=== PATIENT | female | born 1945 | race Asian ===

== ENCOUNTER 2019-07-18 20:41 | Emergency (ER) | payer MEDICARE, OTHER ==
[~2019-07-18] VITALS: Ht 157.5 cm; Wt 63.6 kg
[2019-07-18 21:10] LABS: GLUCOSE,POINT OF CARE 492 MG/DL (70-110)
[2019-07-18] MEDS ORDERED: INSLAN SQ (21:21)
[2019-07-18] MEDS ORDERED: LISI20TA PO (21:21)
[2019-07-18] MEDS ORDERED: [UNRECOGNIZED DRUG - CODE] PO (21:21)
[2019-07-18] MEDS ORDERED: FURO20 PO (21:21)
[2019-07-18] MEDS ORDERED: ASPI-556 PO (21:21)
[2019-07-18] MEDS ORDERED: CETI10TA59 PO (21:21)
[2019-07-18] MEDS ORDERED: AMLO10TA55 PO (21:21)
[2019-07-18] MEDS ORDERED: INSU100I3 SQ (21:21)
[2019-07-18 23:44] LABS: BASOPHILS % (AUTO) 0.7 % (0.0-2.0); EOSINOPHILS % (AUTO) 6.5 % (1.0-6.0); HEMOGLOBIN 12.5 g/dL (12.0-16.0); LYMPHOCYTES # (AUTO) 1.9 K/uL (1.0-4.8); LYMPHOCYTES % (AUTO) 22.2 % (22.0-44.0); MEAN CORPUSCULAR HEMOGLOBIN 27.8 pg (26.0-34.0); MEAN CORPUSCULAR VOLUME 87 fL (80-100); MONOCYTES # (AUTO) 0.9 K/uL (0.1-1.0); NEUTROPHILS % (AUTO) 59.6 % (40.0-70.0); PLATELET COUNT (AUTO) 369 K/uL (150-450); RED BLOOD CELL COUNT(AUTO) 4.49 MIL/uL (4.00-5.20); RED CELL DISTRIBUTION WIDTH 14.5 % (11.5-14.5)
[2019-07-19 00:01] LABS: APPEARANCE,URINE CLEAR (CLEAR); BILIRUBIN,URINE NEGATIVE (NEGATIVE); GLUCOSE, URINE (UA) >=1000 mg/dL (NEGATIVE); KETONES,URINE NEGATIVE (NEGATIVE); LEUKOCYTE ESTERASE ,URINE NEGATIVE (NEGATIVE); NITRATE,URINE NEGATIVE (NEGATIVE); OCCULT BLOOD,URINE TRACE (NEGATIVE); PH,URINE 5.5 (5.0-8.0); PROTEIN,URINE SEE CONFIRM (NEGATIVE); UROBILINOGEN,URINE 0.2 mg/dL (<=1.0)
[2019-07-19 00:09] LABS: ALBUMIN 3.3 g/dL (3.4-5.0); BILIRUBIN,TOTAL 0.2 mg/dL (0.1-1.0); CALCIUM, TOTAL 8.7 mg/dL (8.8-10.5); CREATININE 1.95 mg/dL (0.60-1.30); POTASSIUM 5.1 mmol/L (3.5-5.1); TOTAL PROTEIN, SERUM 7.4 g/dL (6.4-8.2)
[2019-07-19 00:45] LABS: BACTERIA,URINE None Seen /HPF (None Seen); RBC,URINE 0-2 /HPF (0-2); SQUAMOUS EPITHELIAL CELL,UR Few /LPF (None Seen)
[2019-07-19 00:46] LABS: SULFOSALICYLIC ACID,URINE 2+ (Negative)
[2019-07-19 00:51] LABS: GLUCOSE,POINT OF CARE 386 MG/DL (70-110)
[2019-07-19] MEDS ORDERED: INSULIN REGULAR, HUMAN 100 UNITS/ML SQ ONE (02:30)
[2019-07-19] MEDS ORDERED: ACETAMINOPHEN 500 MG TABLET PO ONE (02:45)
[2019-07-19] MEDS ORDERED: SODIUM CHLORIDE 0.9% 1,000 ML IV ONE (05:15)
[2019-07-19 05:36] LABS: GLUCOSE,POINT OF CARE 210 MG/DL (70-110)
[2019-07-19 07:04] VITALS: BP 160/75
== END 2019-07-19 08:12 | disposition home or self-care (01) ==
LOC: EMS 20:42
DX: E11.65 Type 2 diabetes mellitus with hyperglycemia (principal); M54.5 Low back pain; R51 Headache; I10 Essential (primary) hypertension; J45.909 Unspecified asthma, uncomplicated; Z95.0 Presence of cardiac pacemaker; Z79.899 Other long term (current) drug therapy; Z79.4 Long term (current) use of insulin; Z86.73 Personal history of transient ischemic attack (TIA), and cerebral infarction without residual deficits; W18.39XA Other fall on same level, initial encounter; Y93.89 Activity, other specified; Y92.89 Other specified places as the place of occurrence of the external cause; Y99.8 Other external cause status
CPT/HCPCS: 36415; 70450; 72125; 72131; 80053; 81001; 82962; 85025; 87086; 96360; 96361; 96372; 99284; J1815; J7030